=== PATIENT | female | born 1990 | race Caucasian/White ===

== ENCOUNTER 2016-12-09 11:29 | Outpatient (CLI) | payer MEDICAID ==
[2016-12-09 12:37] LABS: APPEARANCE,URINE SLIGHTLY-CLOUDY; BILIRUBIN,URINE NEGATIVE (NEGATIVE); GLUCOSE, URINE NEGATIVE (NEGATIVE); KETONES,URINE NEGATIVE (NEGATIVE); LEUKOCYTE ESTERASE,URINE SMALL (NEGATIVE); NITRITE,URINE NEGATIVE (NEGATIVE); PROTEIN,URINE NEGATIVE (NEGATIVE); URINE SPECIFIC GRAVITY 1.011; UROBILINOGEN,URINE NEGATIVE mg/dL (<2.0)
[2016-12-09 12:51] LABS: URINE BARBITURATES SCREEN NEGATIVE; URINE METHADONE SCREEN NEGATIVE; URINE OPIATES LOW NEGATIVE; URINE PHENCYCLIDINE SCREEN NEGATIVE
--- NOTE | 2016-12-10 14:59 | RADIOLOGY REPORT (SQ) ---
EXAM DESCRIPTION: U/S OB LIMITED COMPLETED DATE/TIME: 12/09/2016, 1342 hours REASON FOR STUDY: 31.6 weeks , cramping, cervical length COMPARISON: No previous this TECHNIQUE: Limited transabdominal and endovaginal scanning was performed. LIMITATIONS: Detailed anatomic survey not requested FINDINGS: Amniotic fluid index 12.5 cm. Single fetus, cephalic orientation, cardiac activity 152 beats per minute. Cervix is closed, 3.9 cm in length. IMPRESSION: Amniotic fluid index 12.5 cm. Cervix is closed, 3.9 cm in length.
== END 2016-12-09 14:08 | disposition home or self-care (01) ==
LOC: LC 11:29
PROVIDERS: ATTEND Obstetrics & Gynecology
PROC: 4A1HXCZ Monitoring of Products of Conception, Cardiac Rate, External Approach (ICD-10-PCS; principal; 2016-12-09)
DX: O60.03 Preterm labor without delivery, third trimester (principal); Z3A.31 31 weeks gestation of pregnancy
CPT/HCPCS: 76815; 80307; 81001

== ENCOUNTER 2017-01-03 12:00 | Emergency (ER) | payer MEDICAID ==
--- NOTE | 2017-01-03 13:00 | ER Document Report ---
ED Cardiac - General Chief Complaint: Chest Pain Stated Complaint: CHEST PAIN Time Seen by Provider: 01/03/17 12:18 Mode of Arrival: Ambulatory Information source: Patient TRAVEL OUTSIDE OF THE [place] IN LAST 30 DAYS: No - HPI Patient complains to provider of: Chest pain, Shortness of breath Chest pain location: Pleuritic Quality of pain: Achy Severity now: Moderate Severity at worst: Moderate Pain level currently: 3 Chest pain precipitating factors: At Rest Associated symptoms: Shortness of breath Exacerbated by: Deep breaths Relieved by: Nothing Similar symptoms previously: No Recently seen / treated by doctor: Yes Notes: Patient is a 26-year-old female who is approximately 35 weeks presenting to the emergency room today from the OBs office for complaints of chest pain started earlier this morning and is associated with shortness of breath, chest pain is worsened with deep breaths, she denies any calf pain or tenderness, no recent immobilization, no surgeries, no history of DVT or PE in the past, no coronary artery disease or risk factors for heart disease - Related Data Allergies/Adverse Reactions: castor oil [Laurier Oil] Allergy (Severe, Verified 01/03/17 12:13) Hives chlorpheniramine maleate [From Triaminic] Allergy (Severe, Verified 01/03/17 12: 13) diphenhydramine HCl [From Triaminic Allergy] Allergy (Severe, Verified 01/03/17 12:13) unknown phenylpropanolamine HCl [From Triaminic] Allergy (Severe, Verified 01/03/17 12: 13) Sulfa (Sulfonamide Antibiotics) Allergy (Severe, Verified 01/03/17 12:13) Anaphylaxis xylometazoline HCl [From Triaminic] Allergy (Severe, Verified 01/03/17 12:13) chlorpheniramine [From Triaminic] Allergy (Unknown, Verified 01/03/17 12:13) dextromethorphan HBr [From Triaminic] Allergy (Unknown, Verified 01/03/17 12:13) phenylephrine HCl [From Triaminic] Allergy (Unknown, Verified 01/03/17 12:13) Past Medical History - General Information source: Patient - Social History Smoking Status: Never Smoker Chew tobacco use (# tins/day): No Frequency of alcohol use: None Drug Abuse: None Family History: Reviewed & Not Pertinent Renal/ Medical History: Denies: Hx Peritoneal Dialysis - Immunizations Hx Diphtheria, Pertussis, Tetanus Vaccination: - unknown Hx Pneumococcal Vaccination: 06/01/11 Review of Systems - Review of Systems Constitutional: No symptoms reported EENT: No symptoms reported Cardiovascular: Chest pain Respiratory: Short of breath Gastrointestinal: No symptoms reported Genitourinary: No symptoms reported Female Genitourinary: No symptoms reported Musculoskeletal: No symptoms reported Skin: No symptoms reported Hematologic/Lymphatic: No symptoms reported Neurological/Psychological: No symptoms reported -: Yes All other systems reviewed and negative Physical Exam - Vital signs Vitals: Temp Pulse Resp BP Pulse Ox 97.7 F 95 16 129/78 H 99 01/03/17 12:10 01/03/17 12:10 01/03/17 12:10 01/03/17 12:10 01/03/17 12:10 Interpretation: Normal - General General appearance: Appears well, Alert - HEENT Head: Normocephalic, Atraumatic Eyes: Normal Pupils: PERRL - Respiratory Respiratory status: No respiratory distress Chest status: Nontender Breath sounds: Normal Chest palpation: Normal - Cardiovascular Rhythm: Regular Heart sounds: Normal auscultation Murmur: No - Abdominal Inspection: Normal, Gravid female Distension: No distension Bowel sounds: Normal Tenderness: Nontender Organomegaly: No organomegaly - Back Back: Normal, Nontender - Extremities General upper extremity: Normal inspection, Nontender, Normal color, Normal ROM , Normal temperature General lower extremity: Normal inspection, Nontender, Normal color, Normal ROM , Normal temperature, Normal weight bearing. No: Sabine's sign - Neurological Neuro grossly intact: Yes Cognition: Normal Orientation: AAOx4 Jean Coma Scale Eye Opening: Spontaneous [place] Coma Scale Verbal: Oriented Jean Coma Scale Motor: Obeys Commands Jean Coma Scale Total: 15 Speech: Normal Motor strength normal: LUE, RUE, LLE, RLE Sensory: Normal - Psychological Associated symptoms: Normal affect, Normal mood - Skin Skin Temperature: Warm Skin Moisture: Dry Skin Color: Normal Course - Re-evaluation Re-evalutation: 01/03/17 14:32 Lab and imaging findings discussed with patient at bedside which are unremarkable, she was discharged with instructions for follow-up and advised to return if any additional concerns, patient acknowledges understanding and agreement with this plan - Vital Signs Vital signs: Temp Pulse Resp BP Pulse Ox 97.7 F 95 16 129/78 H 99 01/03/17 12:10 01/03/17 12:10 01/03/17 12:10 01/03/17 12:10 01/03/17 12:10 - Laboratory Result Diagrams: 01/03/17 13:20 Laboratory results interpreted by me: 01/03/17 13:20 BUN 6 L Creatinine 0.51 L - Diagnostic Test Radiology reviewed: Image reviewed, Reports reviewed - EKG Interpretation by Me EKG shows normal: Sinus rhythm Rate: Normal Rhythm: NSR Additional EKG results interpreted by me: 01/03/17 13:00 Patient has inverted T waves in lead III which are changed from EKG from 2013 Discharge - Discharge Clinical Impression: Chest pain Qualifiers: Chest pain type: unspecified Qualified Code(s): R07.9 - Chest pain, unspecified Condition: Stable Disposition: HOME, SELF-CARE Instructions: Chest Pain of Unclear Cause ([facility]) Additional Instructions: Follow up with your primary care provider in one to 2 days. Return to the emergency room immediately if symptoms worsen or any additional concerns.
[2017-01-03 13:59] LABS: ANION GAP 9 (5-19); BLOOD UREA NITROGEN 6 mg/dL (7-20); CARBON DIOXIDE 23 mmol/L (22-30); CHLORIDE 105 mmol/L (98-107); CREATININE RESULT 0.51 mg/dL (0.52-1.25); GLUCOSE 77 mg/dL (75-110); POTASSIUM 4.1 mmol/L (3.6-5.0); SODIUM 137.4 mmol/L (137-145)
--- NOTE | 2017-01-03 14:24 | RADIOLOGY REPORT (SQ) ---
EXAM DESCRIPTION: CTA CHEST COMPLETED DATE/TIME: 01/03/2017 1:39 pm REASON FOR STUDY: SOB COMPARISON: None. TECHNIQUE: CT scan of the chest performed using helical scanning technique with dynamic intravenous contrast injection. Images reviewed with lung, soft tissue and bone windows. Reconstructed coronal and sagittal MPR images reviewed. Additional 3 dimensional post-processing performed to develop Maximal Intensity Projection images (AK P). All images stored on PACS. All CT scanners at this facility use dose modulation, iterative reconstruction, and/or weight based d osing when appropriate to reduce radiation dose to as low as reasonably achievable (ALARA). [facility]: Dose Right [facility]: CareDose [facility]: Dose Right [facility]: Teradose 4D [facility]: [employer] CONTRAST TYPE AND DOSE: contrast/concentration: Isovue 370.00 mg/ml; Total Contrast Delivered: 72.0 ml; Total Saline Delivered: 100.1 ml Contrast bolus optimized for the pulmonary arteries. Not diagnostic for the aorta. RENAL FUNCTION: None required. The patient is less than 50 years old. RADIATION DOSE: Up-to-date CT equipment and radiation dose reduction techniques were employed. CTDIv ol: 13.2 - 14.4 mGy. DLP: 443 mGy-cm. . LIMITATIONS: None. FINDINGS: LUNGS AND PLEURA: No masses, infiltrates, pneumothorax. No pleural effusions, calcificati ons. AORTA AND GREAT VESSELS: No aneurysm. Contrast bolus not optimized for the aorta. HEART: No pericardial effusion. No significant coronary artery calcifications. PULMONARY ARTERIES: No emboli visualized in the main pulmonary arteries or the segmental branches. HILAR AND MEDIASTINAL STRUCTURES: No identified masses or abnormal nodes. HARDWARE: None in the chest. UPPER ABDOMEN: No significant findings. Limited exam. THYROID AND OTHER SOFT TISSUES: No masses. No adenopathy. BONES: No acute or significant finding. 3D MIPS: Confirm above findings. OTHER: No other significant finding. IMPRESSION: NORMAL CTA OF THE CHEST. NO PULMONARY EMBOLI. COMMENT: Quality ID # [id number]: Final reports with documentation of one or more dose reduction techniques (e.g., Automated exposure control, adjustment of the mA and/or kV according to patient size, use of iterative reconstruction technique) TECHNICAL DOCUMENTATION: JOB ID: [id number] [employer]- All Rights Reserved
[2017-01-03 14:46] VITALS: BP 138/68
--- NOTE | 2017-01-03 20:31 | EKG REPORT ---
SEVERITY:- NORMAL ECG - SINUS RHYTHM : Confirmed by: Vianey Painting 03-Jan-2017 20:30:21
== END 2017-01-03 14:38 | disposition home or self-care (01) ==
LOC: ER 12:00
DX: R07.9 Chest pain, unspecified (principal); Z3A.35 35 weeks gestation of pregnancy; R06.02 Shortness of breath
CPT/HCPCS: 36415; 71275; 80048; 93005; 93010; 99285

== ENCOUNTER 2017-01-21 15:35 | Outpatient (CLI) | payer MEDICAID ==
--- NOTE | 2017-01-21 20:12 | Non Stress Test Report ---
Non Stress Test Datetime Report Generated by CPN: 01/21/2017 20:12 DEMOGRAPHIC EGA NST: 38.0 INDICATION Indication for Study: Ordered by Provider MONITORING Monitor Explained: Monitor Explained; Test Explained; Patient Verbalized Understanding Time on Monitor: 01/21/2017 19:19 Time off Monitor: 01/21/2017 19:47 NST Duration: 28 NST INTERVENTIONS NST Interventions: PO Hydration Physician Notified NST: Boswell BABY A: [id number] BABY A Movement : Present Contraction Frequency : 1.5-4 FHR Baseline : 140 Accelerations : 15X15 Decelerations : None Variability : Moderate 6-25bpm NST Review: Meets Criteria for Reactive NST NST Review and Verified By : Ashley Noel RN Results: Reactive NST REPORT Report Trigger: Send Report
== END 2017-01-21 20:09 | disposition home or self-care (01) ==
LOC: LC 15:35
PROVIDERS: ATTEND Student in an Organized Health Care Education/Training Program
PROC: 4A1HXCZ Monitoring of Products of Conception, Cardiac Rate, External Approach (ICD-10-PCS; principal; 2017-01-21)
DX: O47.1 False labor at or after 37 completed weeks of gestation (principal); Z3A.38 38 weeks gestation of pregnancy
CPT/HCPCS: 59025

== ENCOUNTER 2017-01-22 21:20 | Outpatient (CLI) | payer MEDICAID ==
[2017-01-22 21:48] LABS: APPEARANCE,URINE SLIGHTLY-CLOUDY; BILIRUBIN,URINE NEGATIVE (NEGATIVE); GLUCOSE, URINE 50 mg/dL (NEGATIVE); KETONES,URINE NEGATIVE (NEGATIVE); LEUKOCYTE ESTERASE,URINE SMALL (NEGATIVE); NITRITE,URINE NEGATIVE (NEGATIVE); PROTEIN,URINE NEGATIVE (NEGATIVE); URINE SPECIFIC GRAVITY 1.006
[2017-01-22 22:03] LABS: URINE BARBITURATES SCREEN NEGATIVE; URINE METHADONE SCREEN NEGATIVE; URINE OPIATES LOW NEGATIVE; URINE PHENCYCLIDINE SCREEN NEGATIVE
--- NOTE | 2017-01-23 00:06 | Non Stress Test Report ---
Non Stress Test Datetime Report Generated by CPN: 01/23/2017 00:05 DEMOGRAPHIC EGA NST: 38.1 INDICATION Indication for Study: Ordered by Provider URINE RESULTS Urine Protein, NST: Negative Urine Ketones - NST: Negative Urine Glucose - NST: Positive Urine Blood - NST: Positive MONITORING Monitor Explained: Monitor Explained; Test Explained; Patient Verbalized Understanding Time on Monitor: 01/22/2017 21:36 Time off Monitor: 01/22/2017 22:40 NST Duration: 64 NST INTERVENTIONS NST Interventions: PO Hydration; Reposition Patient Physician Notified NST: Dr. Rios BABY A: [id number] BABY A Movement : Present Contraction Frequency : Irregular FHR Baseline : 135 Accelerations : 15X15 Decelerations : None Variability : Moderate 6-25bpm NST Review: Meets Criteria for Reactive NST NST Review and Verified By : Chava Norton RN NST Results: Reactive NST REPORT Report Trigger: Send Report
== END 2017-01-22 22:46 | disposition home or self-care (01) ==
LOC: LC 21:20
PROVIDERS: ATTEND Obstetrics & Gynecology
DX: O47.1 False labor at or after 37 completed weeks of gestation (principal); Z3A.38 38 weeks gestation of pregnancy
CPT/HCPCS: 80307; 81005

== ENCOUNTER 2017-01-23 19:31 | Inpatient (IN) | payer MEDICAID ==
[2017-01-23 19:56] LABS: APPEARANCE,URINE SLIGHTLY-CLOUDY; BILIRUBIN,URINE NEGATIVE (NEGATIVE); GLUCOSE, URINE NEGATIVE (NEGATIVE); KETONES,URINE NEGATIVE (NEGATIVE); LEUKOCYTE ESTERASE,URINE MODERATE (NEGATIVE); NITRITE,URINE NEGATIVE (NEGATIVE); PROTEIN,URINE 100 mg/dL (NEGATIVE); URINE SPECIFIC GRAVITY 1.005; UROBILINOGEN,URINE NEGATIVE mg/dL (<2.0)
[2017-01-23 20:19] LABS: ABSOLUTE EOSINOPHILS # (AUTO) 0.1 10^3/uL (0.0-0.6); ABSOLUTE LYMPHOCYTES (AUTO) 1.5 10^3/uL (0.5-4.7); ABSOLUTE MONOCYTES (AUTO) 0.6 10^3/uL (0.1-1.4); ABSOLUTE NEUT (AUTO) 7.9 10^3/uL (1.7-8.2); BASOPHILS % (AUTO) 0.4 % (0-2); EOSINOPHILS % (AUTO) 0.6 % (0-6); HEMATOCRIT 30.9 % (36.0-47.0); HEMOGLOBIN 10.6 g/dL (12.0-15.5); HGB HCT DIFFERENCE 0.9; LYMPHOCYTES % (AUTO) 15.3 % (13-45); MEAN CORPUSCULAR HEMOGLOBIN 28.9 pg (27.0-33.4); MEAN CORPUSCULAR HGB CONC 34.4 g/dL (32.0-36.0); MEAN CORPUSCULAR VOLUME 84 fl (80-97); MONOCYTES % (AUTO) 5.8 % (3-13); RED BLOOD COUNT 3.67 10^6/uL (3.72-5.28); RED CELL DISTRIBUTION WIDTH 14.2 % (11.5-14.0); SEGMENTED NEUTROPHILS % (AUTO) 77.9 % (42-78); WHITE BLOOD COUNT 10.1 10^3/uL (4.0-10.5)
[2017-01-23 20:23] LABS: URINE BARBITURATES SCREEN NEGATIVE; URINE METHADONE SCREEN NEGATIVE; URINE OPIATES LOW NEGATIVE; URINE PHENCYCLIDINE SCREEN NEGATIVE
[2017-01-23] MEDS ORDERED: MISOPROSTOL 0.2 MG TABLET ONE (20:35)
[2017-01-23] MEDS ORDERED: PHENYLEPHRINE HCL INJ/PF 10 MG/1 ML SDV ONE (20:35)
[2017-01-23] MEDS ORDERED: FENTANYL CITRATE INJ/PF 100 MCG/2 ML AMPUL ONE (20:35)
[2017-01-23] MEDS ORDERED: EPHEDRINE SULFATE INJ 50 MG/1 ML AMPULE ONE (20:35)
[2017-01-23] MEDS ORDERED: OXYTOCIN/NORMAL SALINE 20 UNIT/1,000 ML RTUINJ ONE (20:36)
[2017-01-23] MEDS ORDERED: BUPIVACAINE HCL 0.25 % INJ/PF (2.5 MG/1 ML) 30 ML VIAL ONE (20:36)
[2017-01-23] MEDS ORDERED: FENTANYL/BUPIVACAINE/NS/PF 200 MCG/100 ML RTUINJ EPI ONE (20:36)
[2017-01-23] MEDS ORDERED: LIDOCAINE 1% INJ-PF (10 MG/ML) 30 ML SDV ONE (20:36)
[2017-01-23 20:48] LABS: ALANINE AMINOTRANSFERASE 19 U/L (9-52); ALBUMIN 3.1 g/dL (3.5-5.0); ALKALINE PHOSPHATASE 173 U/L (38-126); ANION GAP 8 (5-19); ASPARTATE AMINO TRANSFERASE 17 U/L (14-36); BILIRUBIN,DIRECT 0.3 mg/dL (0.0-0.4); BILIRUBIN,TOTAL 0.5 mg/dL (0.2-1.3); BLOOD UREA NITROGEN 4 mg/dL (7-20); CALCIUM 8.8 mg/dL (8.4-10.2); CARBON DIOXIDE 19 mmol/L (22-30); CHLORIDE 110 mmol/L (98-107); CREATININE RESULT 0.46 mg/dL (0.52-1.25); GLUCOSE 110 mg/dL (75-110); LDH 381 U/L (313-618); POTASSIUM 3.7 mmol/L (3.6-5.0); TOTAL PROTEIN 5.4 g/dL (6.3-8.2); URIC ACID 3.5 mg/dL (2.5-6.2)
[2017-01-23] MEDS: RINGERS SOLUTION,LACTATED 1,000 ML IV PRN ×2 (21:17→21:18)
[2017-01-24] MEDS ORDERED: PROMETHAZINE HCL 25 MG SUPP.RECT PR PRN (01:16)
[2017-01-24] MEDS ORDERED: DIPH/PERTUSS(ACELL)/TETANUS VAC/PF 0.5 ML SYR (>=10YO) IM PRN (01:16)
[2017-01-24] MEDS ORDERED: ACETAMINOPHEN WITH CODEINE #3 TABLET PO PRN (01:16)
[2017-01-24] MEDS ORDERED: PROMETHAZINE HCL 25 MG TABLET PO PRN (01:16)
[2017-01-24] MEDS ORDERED: GLYCERIN/WITCH HAZEL LEAF 1 EACH MED..PAD TP PRN (01:16)
[2017-01-24] MEDS ORDERED: BENZOCAINE/MENTHOL AEROSOL SPRAY 56 ML TOP PRN (01:16)
[2017-01-24] MEDS ORDERED: ZOLPIDEM TARTRATE 5 MG TABLET PO PRN (01:16)
[2017-01-24] MEDS ORDERED: DIBUCAINE 1% OINTMENT 28 GM TP PRN (01:16)
[2017-01-24] MEDS ORDERED: MAGNESIUM HYDROXIDE SUSP 30 ML UDCUP PO PRN (01:16)
[2017-01-24] MEDS ORDERED: NA PHOS,M-B/NA PHOS,DI-BA (ADULT) 133 ML ENEMA PR PRN (01:16)
[2017-01-24] MEDS ORDERED: PROMETHAZINE HCL INJ 25 MG/1 ML VIAL IV PRN (01:16)
[2017-01-24] MEDS ORDERED: ACETAMINOPHEN 650 MG SUPP.RECT PR PRN (01:16)
[2017-01-24] MEDS ORDERED: MEASLES,MUMPS&RUBELLA VACC/PF 0.5 ML VIAL SUBCUT PRN (01:16)
--- NOTE | 2017-01-24 02:22 | Delivery Summary ---
Del Sum A-C Datetime Report Generated by CPN: 01/24/2017 02:21 DELIVERY PERSONNEL DELIVERY PERSONNEL: [id number] Delivery Doctor:: Melissa Boswell MD Anesthesiologist:: Brooklyn Mckeon MD Labor and Delivery Nurse:: Debbie Kitchen RNdetail assembler Nurse:: Pushpa Mane RN Accountant Property:: Yaritza Schwartz RN Broach Trouble Shooter/BRAKE MACHINE OPERATOR: eliceo small Broach Trouble Shooter/BRAKE MACHINE OPERATOR: Evangelina Hart, ST MATERNAL INFORMATION Delivery Anesthesia: Epidural Medications After Delivery: Pitocin Bolus-Please Comment; Pitocin Drip 20 Units/1000ml NSS Meds After Delivery Comment: NS with Pitocin 20 units/liter ivf bolus per protocol Estimated Blood Loss (ml): 250 Maternal Complications: None Provider Comments: VFI delivered in NARENDRA presentation with body and double leg cord. Shoulders and body delivered without difficulty. Cord doubly clamped and cut and infant to maternal abd. Placenta delivered intact spontaneously. FF at U. No perineal lacerations. MOther and baby stable upon provider leaving the room. LABOR SUMMARY EDC: 02/04/2017 00:00 No. Babies in Womb: 1 Attempted: No Labor Anesthesia: Epidural LABOR INFORMATION Reason for Induction: Not Applicable Onset of Labor: 01/23/2017 19:52 Complete Dilatation: 01/24/2017 00:38 Oxytocin: N/A Group B Beta Strep: negative Steroids Given: None Reason Steroids Not Administered: Not Applicable MEMBRANES Membranes Rupture Method: Artificial Rupture of Membranes: 01/24/2017 01:00 Length of Rupture (hr): 0.08 Amniotic Fluid Color: Clear Amniotic Fluid Amount: Moderate Amniotic Fluid Odor: Normal STAGES OF LABOR Stage 1 hr: 4 Stage 1 min: 46 Stage 2 hr: 0 Stage 2 min: 27 Stage 3 hr: 0 Stage 3 min: 3 Total Time in Labor hr: 5 Total Time in Labor min: 16 VAGINAL DELIVERY Episiotomy: None Laceration #1: None Laceration Extension #1: N/A Laceration Repair: Not Applicable Sponge Count Correct: N/A Sharps Count Correct: Yes CSECTION DELIVERY Primary Indication: N/A Secondary Indication: N/A CSection Incision: N/A BABY A INFORMATION Infant Delivery Date/Time: 01/24/2017 01:05 Method of Delivery: Vaginal Born in Route : No : N/A Forceps: N/A Vacuum Extraction: N/A Shoulder Dystocia : No PRESENTATION/POSITION BABY A Presentation: Cephalic Cephalic Presentation: Vertex Vertex Position: Right Occipital Anterior Breech Presentation: N/A PLACENTA INFORMATION BABY A Placenta Delivery Time : 01/24/2017 01:08 Placenta Method of Delivery: Spontaneous Placenta Status: Delivered SCORES BABY A Heart Rate 1 min: >100 bpm Resp Effort 1 min: Good Cry Reflex Irritability 1 min: Cough or Sneeze or Pulls Away Muscle Tone 1 min: Active Motion Color 1 min: Body [place], Extremities Blue Resuscitation Effort 1 min: Tactile Stimulation SCORE 1 MIN: 9 Heart Rate 5 min: >100 bpm Resp Effort 5 min: Good Cry Reflex Irritability 5 min: Cough or Sneeze or Pulls Away Muscle Tone 5 min: Active Motion Color 5 min: Body [place], Extremities Blue Resuscitation Effort 5 min: Tactile Stimulation SCORE 5 MIN: 9 INFANT INFORMATION BABY A Gestational Age at Delivery: 38.3 Gestational Status: Early Term- 37- 38.6 Weeks Outcome : Liveborn Infant Condition : Stable Sex: Female IDENTIFICATION BABY A Verification Date/Time: 01/24/2017 01:30 ID Band Number: [id number] Mother's Name Verified: Yes Infant RN Verifying : CaryELICEO Gray Additional Verifying Personnel: Cristiano, RN WEIGHT/LENGTH BABY A Infant Birthweight (gm): 3310 Infant Weight (lb): 7 Infant Weight (oz): 5 Length (in): 19.00 Infant Length (cm): 48.26 CORD INFORMATION BABY A No. Cord Vessels: 3 Nuchal Cord : N/A Nuchal Cord- Other: body and leg cord Cord Blood Taken: Yes-For Eval (Mom's Blood Type - or O+) Infant Suction: Mouth; Nose ASSESSMENT BABY A Complications: None Physical Findings at Delivery: Caput Succedaneum Physical Findings- Other: voided on delivery Infant Respirations: Appears Normal Skin to Skin: Yes Skin to Skin Time (min): 30 Snow Fence Erector/ALS Called : No Care By: ELICEO Efren Transferred To: Remains with Mother BABY B INFORMATION : N/A SIGNATURES Signature: with User ID: [email or web address]
[2017-01-24] MEDS: OXYTOCIN/NORMAL SALINE 20 UNIT/1,000 ML RTUINJ IV PRN ×2 (02:39→02:53)
[2017-01-24] MEDS: ACETAMINOPHEN WITH CODEINE #3 TABLET PO PRN ×2 (02:42→12:49)
[2017-01-24] MEDS ORDERED: ACETAMINOPHEN WITH CODEINE #3 TABLET ONE (02:44)
--- NOTE | 2017-01-24 03:41 | Admission Physical ---
Datetime Report Generated by CPN: 01/24/2017 03:40 CURRENT ADMISSION Chief Complaint: Uterine Contractions Indication for Induction: Not Applicable Indication for Induction: Term, Intrauterine ; Active Labor Admit Plan: Admit to Unit; Initiate Labor Protocol ALLERGIES Medication Allergies: Yes Medication Allergies: dextromethorphan HBr (01/22/2017); xylometazoline HCl/SV (01/22/2017); phenylephrine HCl (01/22/2017); phenylpropanolamine HCl/SV (01/22/2017); diphenhydramine HCl/SV/unknown (01/22/2017); chlorpheniramine maleate/SV (01/22/2017); Sulfa (Sulfonamide Antibiotics)/SV/Anaphylaxis (01/22/2017); castor oil/SV/Hives (01/22/2017); chlorpheniramine (01/22/2017) Medication Allergies: dextromethorphan HBr (01/21/2017); xylometazoline HCl/SV (01/21/2017); phenylephrine HCl (01/21/2017); phenylpropanolamine HCl/SV (01/21/2017); diphenhydramine HCl/SV/unknown (01/21/2017); chlorpheniramine maleate/SV (01/21/2017); Sulfa (Sulfonamide Antibiotics)/SV/Anaphylaxis (01/21/2017); castor oil/SV/Hives (01/21/2017); chlorpheniramine (01/21/2017) Medication Allergies: dextromethorphan HBr (01/03/2017); xylometazoline HCl/SV (01/03/2017); phenylephrine HCl (01/03/2017); phenylpropanolamine HCl/SV (01/03/2017); diphenhydramine HCl/SV/unknown (01/03/2017); chlorpheniramine maleate/SV (01/03/2017); Sulfa (Sulfonamide Antibiotics)/SV/Anaphylaxis (01/03/2017); castor oil/SV/Hives (01/03/2017); chlorpheniramine (01/03/2017) Medication Allergies: dextromethorphan HBr (04/24/2016); xylometazoline HCl/SV (04/24/2016); phenylephrine HCl (04/24/2016); phenylpropanolamine HCl/SV (04/24/2016); diphenhydramine HCl/SV/unknown (04/24/2016); chlorpheniramine maleate/SV (04/24/2016); Sulfa (Sulfonamide Antibiotics)/SV/Anaphylaxis (04/24/2016); castor oil/SV/Hives (04/24/2016); chlorpheniramine (04/24/2016) Latex: No Latex Allergies Food Allergies: none Environmental Allergies: none OBSTETRICAL HISTORY EDC: 02/04/2017 00:00 : 5 Para: 3 Term: 1 : 2 SAB: 1 IAB: 0 Ectopic: 0 Livin Cesareans: 0 VBACs: 0 Multiple Births: 0 Gestational Diabetes: No Rh Sensitization: No Incompetent Cervix: No SALOMÓN: No Infertility: No ART Treatment: No Uterine Anomaly: No IUGR: No Hx Previous C/S: No Macrosomia: No Hx Loss/Stillborn: No PIH: No Hx : No Placenta Previa/Abruption: No Depression/PP Depression: No PTL/PROM: Yes Post Hemorrhage: No Current Procedures: Ultrasound; NST Obstetrical History Comments: G1: 2011 female G2: 2013 female G3: 2015 female G4: 2015 G5: Current SEE RECORDS Alcohol: No Marijuana : No Cocaine: No Other Illicit Drugs: No Cigarettes: Never Smoker. [id number] MEDICAL HISTORY Diabetes: No Blood Transfusion: No Pulmonary Disease (Asthma, TB): No Breast Disease: No Hypertension: No Patient Access Coordinator Surgery: No Heart Disease: No Hosp/Surgery: Yes Autoimmune Disorder: No Anesthetic Complications: No Kidney Disease: No Abnormal Pap Smear: No Neuro/Epilepsy: No Psychiatric Disorders: No Other Medical Diseases: No Hepatitis/Liver Disease: No Significant Family History: No Varicosities/Phlebitis: No Trauma/Violence : No Thyroid Dysfunction: No Medical History Comments: childbirth INFECTIOUS HISTORY Gonorrhea: No Genital Herpes: Yes Chlamydia: No Tuberculosis: No Syphilis: No Hepatitis: No HIV/AIDS Exposure: No Rash or Viral Illness: No HPV: No Infectious History Comments: unknown date of last outbreak PHYSICAL EXAM General: Normal HEENT: Normal Neurologic: Normal Thyroid: Normal Heart: Normal Lungs: Normal Breast: Deferred Back: Normal Abdomen: Normal Genitourinary Exam: Normal Extremities: Normal DTRs: Normal Pelvic Type: Adequate Vital Signs: Reviewed Details Vital Signs: mild elevated BPs VAGINAL EXAM Dilatation: 5 Effacement: 80 Station: -1 Contraction Comments: q 3 MEMBRANES Membranes: Intact FETUS A EGA: 38.2 Monitoring: External US FHR- Baseline: 155 Variability: Moderate 6-25bpm Accelerations: 15X15 Decelerations: None FHR Category: Category I Presentation: Vertex Admit Comment: 26yo at 38+2ega presents for regular uterine ctx. Cvx 5cm which is change from previous exam. Admit for active labor. Pelvis proven to 8#4oz - clavicle fracture - but no dystocia. 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 No prodrome and no lesions. GBS negative. Anticipate . Reassuring FWB. Pelvis adequate for YORDY. BPs elevated but likely due to pain - PIH labs PLANS FOR LABOR AND DELIVERY Labor and Delivery: None Pain Management: Epidural Feeding Preference: Breast Benefit of Breast Feed Discussed: Yes Circumcision: N/A INFORMED CONSENT Informed Consent Obtained: Vaginal Delivery; Risks, Benefits and Alternatives Discussed Signature: with User ID: [email or web address]
[2017-01-24] MEDS ORDERED: INFLUENZA ADLT QUAD (36MOS+) 2017-18 VAC 0.5 ML SYR IM PRN (04:03)
[2017-01-24] MEDS: IBUPROFEN 800 MG TABLET PO SCH ×3 (05:20→20:15)
[2017-01-24] MEDS: PRENATAL VITAMIN W-O CA NO5/FE FUMARATE/FA CAPSULE PO SCH (09:47)
[2017-01-24] MEDS: FAMOTIDINE 20 MG TABLET PO SCH ×2 (09:47→22:08)
[2017-01-24] MEDS: FERROUS SULFATE 325 MG TABLET PO SCH ×2 (09:47→17:53)
[2017-01-24] MEDS: DOCUSATE SODIUM 100 MG CAPSULE PO SCH ×2 (09:47→17:53)
[2017-01-24] MEDS: SENNOSIDES/DOCUSATE 8.6-50 MG 1 EACH TABLET PO SCH (09:48)
--- NOTE | 2017-01-24 12:03 | PDOC PROGRESS REPORT ---
Subjective-OB Subjective: Post Delivery Day:1 26 year old G5 now P4 s/p ppd1. Ambulating, and voiding without difficulty. Denies any needs at this time Physical Exam (OB) Vital Signs: Temp Pulse Resp BP Pulse Ox 98.2 F 82 16 118/71 100 01/24/17 08:55 01/24/17 08:55 01/24/17 08:55 01/24/17 08:55 01/24/17 08:55 Intake & Output 01/23/17 01/24/17 01/25/17 06:59 06:59 06:59 Weight 84.8 kg - General General Appearance: Appears well In distress: None - PIH/Pre-Eclampsia Headache: Absent Epigastric Pain: No Visual Changes: No - Episiotomy/Laceration Site Condition: N/A - Lochia Lochia Amount: Scant < 10 ml Lochia Color: Rubra/Red - Abdomen Description: Soft, Flat Hernia Present: No Fundal Description: Firm Fundal Height: 1/u - 2/u - Respiratory Respiratory Status: No respiratory distress - Extremities Upper extremity: Normal inspection Lower extremities: Normal inspection - Neurological Cognition: Normal Orientation: AAOx4 - Psychological Associated symptoms: Normal affect, Normal mood Objective-Diagnostic Laboratory: 01/23/17 20:04 01/23/17 20:04 01/23/17 01/23/17 01/23/17 19:45 20:04 20:04 WBC 10.1 RBC 3.67 L Hgb 10.6 L Hct 30.9 L MCV 84 MCH 28.9 MCHC 34.4 RDW 14.2 H Plt Count 194 Seg Neutrophils % 77.9 Lymphocytes % 15.3 Monocytes % 5.8 Eosinophils % 0.6 Basophils % 0.4 Absolute Neutrophils 7.9 Absolute Lymphocytes 1.5 Absolute Monocytes 0.6 Absolute Eosinophils 0.1 Absolute Basophils 0.0 Sodium Potassium Chloride Carbon Dioxide Anion Gap BUN Creatinine Est GFR ( Amer) Est GFR (Non-Af Amer) Glucose Uric Acid Calcium Total Bilirubin AST ALT Alkaline Phosphatase Total Protein Albumin Urine Color RED Urine Appearance SLIGHTLY-CLOUDY Urine pH 7.0 Ur Specific [place] 1.005 Urine Protein 100 H Urine Glucose (UA) NEGATIVE Urine Ketones NEGATIVE Urine Blood LARGE H Urine Nitrite NEGATIVE Ur Leukocyte Esterase MODERATE H Blood Type O POSITIVE Antibody Screen NEGATIVE 01/23/17 20:04 WBC RBC Hgb Hct MCV MCH MCHC RDW Plt Count Seg Neutrophils % Lymphocytes % Monocytes % Eosinophils % Basophils % Absolute Neutrophils Absolute Lymphocytes Absolute Monocytes Absolute Eosinophils Absolute Basophils Sodium 137.0 Potassium 3.7 Chloride 110 H Carbon Dioxide 19 L Anion Gap 8 BUN 4 L Creatinine 0.46 L Est GFR ( Amer) > 60 Est GFR (Non-Af Amer) > 60 Glucose 110 Uric Acid 3.5 Calcium 8.8 Total Bilirubin 0.5 AST 17 ALT 19 Alkaline Phosphatase 173 H Total Protein 5.4 L Albumin 3.1 L Urine Color Urine Appearance Urine pH Ur Specific [place] Urine Protein Urine Glucose (UA) Urine Ketones Urine Blood Urine Nitrite Ur Leukocyte Esterase Blood Type Antibody Screen Assessment and Plan(PN) - Assessment and Plan (1) Normal vaginal delivery Is this a current diagnosis for this admission?: Yes Plan: routine pp care (2) Anemia Qualifiers: Anemia type: unspecified type Qualified Code(s): D64.9 - Anemia, unspecified Is this a current diagnosis for this admission?: Yes Plan: increase dietary iron and po FeSO4 (3) History of HSV Is this a current diagnosis for this admission?: Yes Plan: no recent outbreaks, on valtrex at the time of delivery - Time Spent with Patient Time with patient: Less than 15 minutes Critical Time spent with patient: Less than 15 minutes Medications reviewed and adjusted accordingly: Yes - Disposition Anticipated Discharge: Home Within: within 48 hours
[2017-01-25] MEDS: ACETAMINOPHEN WITH CODEINE #3 TABLET PO PRN (02:11)
[2017-01-25] MEDS: IBUPROFEN 800 MG TABLET PO SCH ×3 (05:46→21:53)
[2017-01-25 07:30] LABS: HEMATOCRIT 29.4 % (36.0-47.0); HGB HCT DIFFERENCE 0.6; MEAN CORPUSCULAR HEMOGLOBIN 29.1 pg (27.0-33.4); MEAN CORPUSCULAR HGB CONC 34.1 g/dL (32.0-36.0); MEAN CORPUSCULAR VOLUME 85 fl (80-97); RED BLOOD COUNT 3.44 10^6/uL (3.72-5.28); RED CELL DISTRIBUTION WIDTH 14.4 % (11.5-14.0); WHITE BLOOD COUNT 7.9 10^3/uL (4.0-10.5)
--- NOTE | 2017-01-25 09:15 | PDOC PROGRESS REPORT ---
Subjective-OB Subjective: Post Delivery Day: 26 year old. Denies any needs at this time Physical Exam (OB) Vital Signs: Temp Pulse Resp BP Pulse Ox 97.6 F 83 15 108/54 L 100 01/25/17 08:05 01/25/17 08:05 01/25/17 08:05 01/25/17 08:05 01/25/17 08:05 Intake & Output 01/24/17 01/25/17 01/26/17 06:59 06:59 06:59 Intake Total 500 Balance 500 Weight 84.8 kg - PIH/Pre-Eclampsia Headache: Absent Epigastric Pain: No Visual Changes: No - Lochia Lochia Amount: Scant < 10 ml Lochia Color: Rubra/Red - Abdomen Description: Tender, Soft, Round Hernia Present: No Bowel Sounds: Normoactive Flatus Presence: Present Stool: No Fundal Description: Firm, Midline Fundal Height: u/u - u/2 Objective-Diagnostic Laboratory: 01/25/17 07:07 01/23/17 20:04 01/25/17 07:07 WBC 7.9 RBC 3.44 L Hgb 10.0 L Hct 29.4 L MCV 85 MCH 29.1 MCHC 34.1 RDW 14.4 H Plt Count 191 Assessment and Plan(PN) - Time Spent with Patient Medications reviewed and adjusted accordingly: Yes - Disposition Anticipated Discharge: Home
[2017-01-25] MEDS: DOCUSATE SODIUM 100 MG CAPSULE PO SCH ×2 (09:55→18:10)
[2017-01-25] MEDS: PRENATAL VITAMIN W-O CA NO5/FE FUMARATE/FA CAPSULE PO SCH (09:55)
[2017-01-25] MEDS: SENNOSIDES/DOCUSATE 8.6-50 MG 1 EACH TABLET PO SCH (09:55)
[2017-01-25] MEDS: FERROUS SULFATE 325 MG TABLET PO SCH ×2 (09:56→18:10)
[2017-01-25] MEDS: FAMOTIDINE 20 MG TABLET PO SCH ×2 (09:56→21:53)
[2017-01-26] MEDS: IBUPROFEN 800 MG TABLET PO SCH (05:11)
--- NOTE | 2017-01-26 08:58 | PDOC DISCHARGE SUMMARY ---
Final Diagnosis Discharge Date: 01/26/17 - Final Diagnosis (1) Anemia Is this a current diagnosis for this admission?: Yes (2) History of HSV Is this a current diagnosis for this admission?: Yes (3) Normal vaginal delivery Is this a current diagnosis for this admission?: Yes Discharge Data - Discharge Medication Home Medications: Pnv W-O Ca No5/Fe Fumarate/FA [-U Multiple Vitamin Capsule] 1 cap PO DAILY 03/20/11 Valacyclovir HCl [Valtrex] 1,000 mg PO DAILY 01/22/17 Docusate Sodium [Colace 100 mg Capsule] 100 mg PO BID #60 capsule 01/26/17 Ferrous Sulfate [Feosol 325 mg Tablet] 325 mg PO BID #60 tablet 01/26/17 Ibuprofen [Motrin 800 mg Tablet] 800 mg PO Q8 #60 tablet 01/26/17 Gestational Age: 38.3 Reason(s) for Admission: Onset of Labor Procedures: NST Intrapartum Procedure(s): Spontaneous Vaginal Delivery - [place] Data Baby 1 Female at 1 minute: 9 at 5 minutes: 9 Weight: 3310 kg Home with Mother: Yes Complications: No - Diagnosis Test Laboratory: Temp Pulse Resp BP Pulse Ox 97.3 F 77 18 135/79 H 99 01/25/17 19:00 01/25/17 19:00 01/25/17 19:00 01/25/17 19:00 01/25/17 19:00 01/23/17 01/23/17 01/25/17 19:45 20:04 07:07 RBC 3.67 L 3.44 L Hgb 10.6 L 10.0 L Hct 30.9 L 29.4 L Urine Opiates Screen NEGATIVE - Discharge information/Instructions Discharge Activity: Activity As Tolerated, Pelvic Rest, No tub bath Discharge Diet: Regular Disposition: HOME, SELF-CARE Follow up with: [facility] in: 4, Weeks
[2017-01-26 10:27] VITALS: BP 135/79
[2017-01-26] MEDS: PRENATAL VITAMIN W-O CA NO5/FE FUMARATE/FA CAPSULE PO SCH (10:41)
[2017-01-26] MEDS: FERROUS SULFATE 325 MG TABLET PO SCH (10:42)
[2017-01-26] MEDS: FAMOTIDINE 20 MG TABLET PO SCH (10:42)
[2017-01-26] MEDS: SENNOSIDES/DOCUSATE 8.6-50 MG 1 EACH TABLET PO SCH (10:42)
[2017-01-26] MEDS: DOCUSATE SODIUM 100 MG CAPSULE PO SCH (10:42)
== END 2017-01-26 12:30 | disposition home or self-care (01) | DRG 774 ==
LOC: LC 19:31 → LR 19:56 → 2S 01-24 03:15
PROVIDERS: ADMIT Student in an Organized Health Care Education/Training Program; ATTEND Student in an Organized Health Care Education/Training Program
PROC: 4A1HXCZ Monitoring of Products of Conception, Cardiac Rate, External Approach (ICD-10-PCS; 2017-01-23)
PROC: 10E0XZZ Delivery of Products of Conception, External Approach (ICD-10-PCS; principal; 2017-01-24)
PROC: 3E0234Z Introduction of Serum, Toxoid and Vaccine into Muscle, Percutaneous Approach (ICD-10-PCS; 2017-01-26)
PROC: 3E0234Z Introduction of Serum, Toxoid and Vaccine into Muscle, Percutaneous Approach (ICD-10-PCS; 2017-01-26)
DX: O98.32 Other infections with a predominantly sexual mode of transmission complicating childbirth (principal); O69.2XX0 Labor and delivery complicated by other cord entanglement, with compression, not applicable or unspecified; A60.00 Herpesviral infection of urogenital system, unspecified; O99.02 Anemia complicating childbirth; D64.9 Anemia, unspecified; Z23 Encounter for immunization; Z37.0 Single live birth; Z88.2 Allergy status to sulfonamides; Z3A.38 38 weeks gestation of pregnancy; Z79.899 Other long term (current) drug therapy
CPT/HCPCS: 36415; 80053; 80307; 81005; 83615; 84550; 85025; 85027; 86592; 86850; 86900; 86901; 90686; 90715; 94760; J2370; J2590; J3010; J3490

== ENCOUNTER 2019-03-29 00:42 | Emergency (ER) | payer MEDICAID ==
[2019-03-29 01:41] VITALS: BP 130/77
== END 2019-03-29 02:17 | disposition left against medical advice (07) ==
LOC: ER 00:42
DX: Z53.21 Procedure and treatment not carried out due to patient leaving prior to being seen by health care provider (principal)